=== PATIENT | male | born 1960 | race Hispanic/Latino ===

== ENCOUNTER 2018-01-06 15:05 | Inpatient (IN) | payer OTHER, SELFPAY ==
[2018-01-06 16:22] LABS: #Eosinphils 0.2 thou/uL (0.0-0.7); #Lymphocytes 1.6 thou/uL (1.20-3.40); #Monocytes 0.7 thou/uL (0.11-0.59); #Neutrophils 6.9 thou/uL (1.40-6.50); %Basophils 0.5 % (0.0-1.0); %Eosinophils 2.4 % (0.0-10.0); %Lymphocytes 16.7 % (21.0-51.0); %Monocytes 7.8 % (0.0-10.0); %Neutrophils 72.6 % (42.0-75.0); Hemoglobin 12.3 g/dL (14.0-18.0); Mean Corpuscular HGB CONC 33.6 g/dL (32.0-36.0); Mean Corpuscular Hemoglobin 28.4 pg (27.0-31.0); Mean Corpuscular Volume 84.3 fl (80.0-94.0); Mean Platelet Volume 6.7 fL (7.4-10.4); Platelet Count 268 thou/uL (130-400); RBC Distribution Width 11.8 % (11.5-14.5); Red Blood Cell (RBC) Count 4.34 mill/uL (4.70-6.10); White Blood Cell (WBC) Count 9.5 thou/uL (4.8-10.8)
[2018-01-06 16:42] LABS: ALT (SGPT) 14 U/L (8-55); AST (SGOT) 12 U/L (5-34); Albumin 3.6 g/dL (3.5-5.0); Alkaline Phosphatase 132 U/L (40-150); Anion Gap 13 mmol/L (10-20); BUN (Urea Nitrogen) 17 mg/dL (8.4-25.7); Bilirubin, Total 0.6 mg/dL (0.2-1.2); Calc. Creatinine Clearance 0 mL/min (70-130); Calcium 8.7 mg/dL (7.8-10.44); Carbon Dioxide 21 mmol/L (22-29); Chloride 104 mmol/L (98-107); Estimated GFR-MDRD 77; Globulin 3.4 g/dL (2.4-3.5); Glucose 301 mg/dL (70-105); Potassium 4.7 mmol/L (3.5-5.1); Sodium 133 mmol/L (136-145)
--- NOTE | 2018-01-06 17:36 | RAD ---
RIGHT FOOT THREE VIEWS: 01/06/18 HISTORY: Foot abscess. Pain. FINDINGS: Lisfranc joint alignment is anatomic. Pes planus on the lateral view. Mild osteoarthritic changes thr oughout the foot, most pronounced at the first metatarsophalangeal joint. Soft tissues swelling overl ies the first metatarsophalangeal joint. Subtle cortical irregularity and discontinuity is present at the medial articular surface of the first metatarsal head. Subtle, tiny calcific densities also over lie the plantar surface of the foot at the level of the metatarsal heads in region of soft tissue swe lling. Prominent calcification of the arterial structures. IMPRESSION: Soft tissue swelling about the first metatarsophalangeal joint with subtle ossific erosions and adjac ent calcifications. Aggressive osseous involvement, as with osteomyelitis must be suspected. POS: MICHELLE
[2018-01-06] MEDS ORDERED: Clindamycin/D5W 900 mg/50 ml Premix Bag ONE (18:42)
[2018-01-06] MEDS ORDERED: Acetaminophen 325 MG TAB PO PRN (20:10)
[2018-01-06] MEDS ORDERED: Sodium Chloride 0.9% 1,000 ML IV SCH (20:10)
[2018-01-06 21:52] VITALS: BMI 26.6
[2018-01-06] MEDS ORDERED: Clindamycin/D5W 900 MG in Premix Bag 1 BAG IVPB SCH ×2 (22:00→23:00)
[2018-01-06] MEDS ORDERED: Piperacillin/Tazobactam 4.5 GM in Sodium Chloride 0.9% 100 ML IVPB SCH (23:59)
[2018-01-07] MEDS ORDERED: HumaLOG 300 UNITS/3 ML VIAL SC PRN (08:41)
[2018-01-07] MEDS ORDERED: Mag-Al 1200 mg/1200 mg/30 ML UDCUP PO PRN (08:41)
[2018-01-07] MEDS ORDERED: Guaifenesin DM 100-10/5 ML UDCUP PO PRN (08:41)
[2018-01-07] MEDS ORDERED: HYDROcodone/Acetaminophen 5/325 mg Tablet PO PRN (08:41)
[2018-01-07] MEDS ORDERED: Acetaminophen 325 MG TAB PO PRN (08:41)
[2018-01-07] MEDS ORDERED: Dextrose 5% in Water 1,000 ML IV PRN (08:41)
[2018-01-07] MEDS ORDERED: Dextrose 50% Abboject 50 ML SYRINGE SLOW IVP PRN (08:41)
[2018-01-07] MEDS ORDERED: Sodium Chloride 0.9% 1,000 ML IV SCH (08:45)
[2018-01-07] MEDS: Famotidine 20 MG TAB PO SCH ×2 (09:36→21:09)
[2018-01-07] MEDS: Vancomycin HCl 1 GM in Premix Bag 1 BAG IVPB SCH ×2 (09:36→21:09)
[2018-01-07] MEDS: Piperacillin/Tazobactam 3.375 GM in Sodium Chloride 0.9% 100 ML IVPB SCH ×3 (11:34→23:38)
[2018-01-07 15:19] LABS: Hemoglobin A1c 8.8 % (4.0-6.0)
--- NOTE | 2018-01-07 16:13 | CON ---
DATE OF CONSULTATION: 01/07/2018 CONSULTING PHYSICIAN: Vivi Marr M.D. REASON FOR CONSULTATION: Diabetic foot infection. HISTORY OF PRESENT ILLNESS: The patient is a 57-year-old diabetic male. He receives his me dical care in [place] and receives his diabetic medications there as well. He has lived in [facility] for over 30 years. 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 He t ells me he speaks essentially no [place]. His and son are present at bedside and neither of the m speak any [place] either. Exam is therefore conducted in Faroese. He admits to an ulcer on the plantar aspect of his right foot for the past 5 months. This is underly ing the head of the first metatarsal bone. About 2 months ago, he developed a smaller lesion on the plantar aspect of his left great toe. He presented to the emergency room at this time because the to e had become red and swollen. He denies fever. He denies any pain. He is self-treated these ulcers and has taken no medications in regard to that. PAST MEDICAL HISTORY: Diabetes. PAST SURGICAL HISTORY: Surgical repair of a broken femur about 30 years ago. MEDICATIONS: Glyburide and metformin. He takes 5 mg of glyburide b.i.d. and 850 mg of metformin b.i .d. ALLERGIES: No known drug allergies. PERSONAL AND SOCIAL HISTORY: He is . His is present at bedside. He had 10 children abo ut four of them live in the [facility]. He does not smoke. He drinks alcohol occasionally. 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 REVIEW OF SYSTEMS: Otherwise, unremarkable. FAMILY HISTORY: Noncontributory. PHYSICAL EXAMINATION: VITAL SIGNS: Temperature is 98.1, pulse 71, blood pressure 171/82. GENERAL: He is a well-developed, well-nourished, pleasant male resting in bed in no acute d istress. He is alert and oriented x3. HEAD, EARS, EYES, NOSE AND THROAT: Unremarkable. NECK: Supple without mass or tenderness. LUNGS: Clear to auscultation throughout. CARDIAC: Regular rate and rhythm without murmur. ABDOMEN: Soft, nontender, and nondistended. EXTREMITIES: Attention is focused on his right foot. I am unable to palpate any pulses in his foot; however, Doppler examination reveals both his dorsalis pedis and posterior tibial arteries have good biphasic signals. On the plantar aspect of the foot underlying the first metatarsal head is an ulce r with bulging granulation tissue protruding from this. It measures a little over a centimeter in di ameter. I am able to palpate the underlying bone through this. The great toe has a punched-out ulce r on the lateral aspect. There is devitalized skin surrounding this, it is debrided. I do not think I am able to palpate the bone through this, although the tissue appears to be very unhealthy. ASSESSMENT AND PLAN: The patient with diabetic foot ulcer. He appears to potentially have some oste omyelitis associated with the ulcer involving the first metatarsal head. He has significant infectio n of the great toe, but this appears to predominantly be soft tissue infection. He is receiving IV a ntibiotics right now. I have obtained cultures from both wounds. It may be worthwhile to attempt a course of conservative management of these. It is concerning that there is potentially exposed bone associated with the metatarsal head and this often times leads to an amputation of this bone. This w ould likely require an extended great toe ray amputation for this to heal. We will see what the cult ures show and follow him clinically with dressing changes for a day or two before deciding what to do with the foot.
[2018-01-07] MEDS ORDERED: Lisinopril 10 MG TAB PO SCH (16:45)
[2018-01-07] MEDS: HumaLOG 300 UNITS/3 ML VIAL SC PRN (17:07)
--- NOTE | 2018-01-07 20:38 | HP ---
REASON FOR ADMISSION: Right foot diabetic ulcer with likely osteomyelitis. HISTORY OF PRESENTING ILLNESS: The patient gives history of having ulcer over the right metatarsal head of first toe 5 months back. This started out as a callus and when he pulled the skin out, it started slowly getting infected. He tried putting a steroid cream with gentamicin on it. This has been progressively getting worse. Two months back, he also developed another blister over the same toe at the tip that is right first toe and the blister popped up and has ever since been slowly becoming bigger. As the swelling and the discharge was becoming more purulent and it started to hurt to ambulate, the patient came to the emergency room. 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 No complaints of chest pain, palpitation, PND or orthopnea. No complaints of fever. PAST MEDICAL AND SURGICAL HISTORY: Diabetes mellitus for last 16 years or so. No other surgeries. CURRENT MEDICATIONS: He takes metformin 850 mg p.o. twice daily and glibenclamide 5 mg p.o. twice daily. ALLERGIES: No known drug allergies. PERSONAL HISTORY: Does not abuse alcohol or drugs. No history of smoking. 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 FAMILY HISTORY: Mother is living and has diabetes. Father at the age of 77 years, he was alcoholic and from complications from the same. REVIEW OF SYSTEMS: The following complete review of systems was negative, unless otherwise mentioned in the HPI or below: Constitutional: Weight loss or gain, ability to conduct usual activities. Skin: Rash, itching. Eyes: Double vision, pain. ENT/Mouth: Nose bleeding, neck stiffness, pain, tenderness. Cardiovascular: Palpitations, dyspnea on exertion, orthopnea. Respiratory: Shortness of breath, wheezing, cough, hemoptysis, fever or night sweats. Gastrointestinal: Poor appetite, abdominal pain, heartburn, nausea, vomiting, constipation, or diarrhea. Genitourinary: Urgency, frequency, dysuria, nocturia. Musculoskeletal: Pain, swelling. Neurologic/Psychiatric: Anxiety, depression. Allergy/Immunologic: Skin rash, bleeding tendency. PHYSICAL EXAMINATION: GENERAL: The patient is a 57-year-old male, who is currently not in any acute distress. VITAL SIGNS: Blood pressure 146/74, pulse 70 per minute, respiratory rate 16 per minute, temperature 98.2 degrees Fahrenheit, saturating 100% on room air. NECK: Supple, no elevated JVD. HEENT: Eyes: Extraocular muscles intact. Pupils reacting to light. Oral cavity: Mucous membranes are moist. No exudates or congestion. CARDIOVASCULAR: S1, S2 heard. Regular rhythm. RESPIRATORY: Air entry 2+ bilateral. No rales or rhonchi. ABDOMEN: Soft, bowel sounds heard. No tenderness, rigidity or guarding. EXTREMITIES: The patient has 2 ulcers, one on the ball of the right metatarsal head, the ulcer is 2 x 1 cm with surrounding yellowish purulent material, the circumference is around 4 x 4 cm. He also has another ulcer over the posterolateral aspect of the big toe on the right foot. The ulcer itself is around 3 x 2 cm with purulent all over the distal tip extending to the proximal phalanx. No calf tenderness or other ischemic ulcerations. CENTRAL NERVOUS SYSTEM: No gross focal deficits seen. The patient is alert, awake, oriented x3. PSYCHIATRIC: The patient's mood is euthymic. No hallucinations or delusions. LABORATORY AND X-RAY FINDINGS: Right foot x-ray done 3-view shows soft tissue swelling around the first metatarsophalangeal joint with subtle ossific erosions and adjacent calcifications, aggressive osseous involvement as with osteomyelitis must be suspected. Sodium 133, BUN 17, creatinine 1.0, glucose 301, hemoglobin A1c 8.8. Liver enzymes within normal limits. CRP is 7.42. Albumin is 3.6. White count of 9, hemoglobin and hematocrit 12 and 36, platelet count 268 with 72% neutrophils, MCV is 84. CLINICAL IMPRESSION AND PLAN: The patient will be admitted to medical floor for right foot diabetic ulcer over the first toe and metatarsal head with likely osteomyelitis. We will place him on Zosyn and vancomycin. Cultures have been obtained from the foot. I have consulted Dr. Suresh for General Surgery. He will be on normal saline at 60 mL per hour. We will keep him n.p.o. for possible debridement/amputation per General Surgery advice. He will be on Pepcid 20 mg twice daily. We will add metformin in the morning once his debridement is done. We will continue to closely monitor him on medical floor. MTDD
[2018-01-07] MEDS: Metoprolol Tartrate 25 MG TAB PO SCH (21:09)
[2018-01-08 05:25] LABS: #Eosinphils 0.2 thou/uL (0.0-0.7); #Lymphocytes 1.7 thou/uL (1.20-3.40); #Monocytes 0.7 thou/uL (0.11-0.59); #Neutrophils 4.4 thou/uL (1.40-6.50); %Basophils 0.5 % (0.0-1.0); %Eosinophils 3.2 % (0.0-10.0); %Lymphocytes 24.3 % (21.0-51.0); %Monocytes 9.4 % (0.0-10.0); %Neutrophils 62.6 % (42.0-75.0); Hemoglobin 11.8 g/dL (14.0-18.0); Mean Corpuscular HGB CONC 34.4 g/dL (32.0-36.0); Mean Corpuscular Hemoglobin 28.6 pg (27.0-31.0); Mean Platelet Volume 6.6 fL (7.4-10.4); Platelet Count 262 thou/uL (130-400); RBC Distribution Width 11.6 % (11.5-14.5); Red Blood Cell (RBC) Count 4.11 mill/uL (4.70-6.10); White Blood Cell (WBC) Count 7.1 thou/uL (4.8-10.8)
[2018-01-08 06:01] LABS: Anion Gap 10 mmol/L (10-20); BUN (Urea Nitrogen) 12 mg/dL (8.4-25.7); Calc. Creatinine Clearance 101 mL/min (70-130); Calcium 8.6 mg/dL (7.8-10.44); Carbon Dioxide 26 mmol/L (22-29); Chloride 106 mmol/L (98-107); Estimated GFR-MDRD 90; Glucose 171 mg/dL (70-105); Potassium 4.5 mmol/L (3.5-5.1); Sodium 137 mmol/L (136-145)
[2018-01-08] MEDS: Piperacillin/Tazobactam 3.375 GM in Sodium Chloride 0.9% 100 ML IVPB SCH ×3 (06:16→18:06)
[2018-01-08] MEDS: Famotidine 20 MG TAB PO SCH ×2 (08:35→20:06)
[2018-01-08] MEDS: Vancomycin HCl 1 GM in Premix Bag 1 BAG IVPB SCH ×2 (08:35→20:05)
[2018-01-08] MEDS: Lisinopril 10 MG TAB PO SCH (08:35)
[2018-01-08] MEDS: Metoprolol Tartrate 25 MG TAB PO SCH ×2 (08:35→20:06)
[2018-01-08] MEDS: Enoxaparin Sodium 40 MG/0.4 ML SYRINGE SC SCH (08:35)
--- NOTE | 2018-01-08 11:54 | PRG ---
DATE OF SERVICE: 01/08/2018 SUBJECTIVE: This is hospital day #3 for Mr. Pedro. He had 2 ulcers on the plantar aspect of his right foot, one overlying the first MTP head and the other associated with the great toe. I debrided that superficially yesterday and requested Wound Care consult. I saw the patient with Wound Care to day. The patient has no complaints. OBJECTIVE: VITAL SIGNS: He is afebrile, pulse is 77, blood pressure 151/74. Examination is limited today to hi s right foot. The ulcer at the first MTP joint was debrided, removing some scar tissue and hyper-gra nulation tissue that would allow us to pack the wound on the plantar aspect. There was minimal bleed ing from this as most of this tissue was avascular fibrotic tissue. I then turned my attention to th e toe. There was black skin on the distal plantar aspect. This was debrided. There is a foul smell from this area. After the skin was debrided, there was what appeared to be normal pulpy material un derneath. Today, I am unable to discern that either wound communicates with underlying bone and I am hopeful that with wound care that these have a chance of healing without amputation. LABORATORY STUDIES: CBC is normal with hemoglobin of 11.8. Basic metabolic panel is also normal exc ept for elevated sugar. Microbiology reveals beta hemolytic streptococcus from both wound sites. He continues to receive van comycin and Zosyn in treatment of this. If the final cultures just reveal Streptococcus, then he cou ld be changed to an oral antibiotic with continued outpatient wound care. At this time, I would hold off on amputation of anything, but he certainly may require this somewhere down the road. I will gi ve orders for strict nonweightbearing on the right foot and ask physical therapy to train him using c rutches to keep the weight off his foot.
[2018-01-08] MEDS: HumaLOG 300 UNITS/3 ML VIAL SC PRN ×2 (12:19→18:07)
--- NOTE | 2018-01-08 15:32 | PDOC.PN ---
- Subjective Encounter Start Date: 01/08/18 Encounter Start Time: 12:00 Subjective: no pain, feels better - Objective Resuscitation Status: Resuscitation Status FULL:Full Resuscitation MAR Reviewed: Yes Vital Signs & Weight: Vital Signs (12 hours) Temp Pulse Resp BP BP Pulse Ox 01/08/18 08:35 151/74 H 01/08/18 08:00 98.9 F 77 18 160/89 H 100 Weight Weight 169 lb 12.095 oz I&O: 01/07/18 01/08/18 01/09/18 06:59 06:59 06:59 Intake Total 950 907 960 Balance 950 907 960 Result Diagrams: 01/08/18 04:48 01/08/18 04:48 Additional Labs: Accuchecks 01/08/18 01/08/18 01/07/18 11:34 06:12 15:58 POC Glucose 290 H 186 H 163 H Phys Exam - Physical Examination HEENT: PERRLA, moist MMs Neck: no JVD, supple Respiratory: no wheezing, no rales Cardiovascular: RRR, no significant murmur Gastrointestinal: soft, non-tender, positive bowel sounds Musculoskeletal: pulses present right foot ulcers x2 in dressing Neurological: non-focal, moves all 4 limbs Psychiatric: normal affect, A&O x 3 Dx/Plan (1) Diabetic foot ulcer Code(s): E11.621 - TYPE 2 DIABETES MELLITUS WITH FOOT ULCER; L97.509 - NON- PRESSURE CHRONIC ULCER OTH PRT UNSP FOOT W UNSP SEVERITY Status: Acute Qualifiers: Diabetic foot ulcer location: toe Diabetes mellitus type: type 2 Laterality: right Comment: x2 one over metatarsal head on right, distal phalanx area of gr toe, ? osteomyelitis (2) DM type 2 (diabetes mellitus, type 2) Status: Chronic Qualifiers: Diabetes mellitus senior care insulin use: without senior care use Diabetes mellitus complication status: with hyperglycemia Qualified Code(s): E11.65 - Type 2 diabetes mellitus with hyperglycemia (3) HTN (hypertension) Code(s): I10 - ESSENTIAL (PRIMARY) HYPERTENSION Status: Chronic Qualifiers: Hypertension type: essential hypertension Qualified Code(s): I10 - Essential (primary) hypertension (4) Dyslipidemia Code(s): E78.5 - HYPERLIPIDEMIA, UNSPECIFIED Status: Chronic - Plan is on vanc and zosyn -: await full cultures from wound -: dc plan on augmentin, wound care teaching in 1-2 days -: HbA1C is 8.8, home dose metformin, add glipizide 5mg bid -: on lopressor and lisinopril. Non wtg bearing on right foot and to use crutc * . Review of Systems - Medications/Allergies Allergies/Adverse Reactions: Allergies Allergy/AdvReac Type Severity Reaction Status Date / Time No Known Allergies Allergy Unverified 01/06/18 20:09 Medications: Current Medications Acetaminophen (Tylenol) 650 mg PO Q4H PRN PRN Reason: Headache/Fever or Pain Hydrocodone Bitart/Acetaminophen ([place] 5/325) 1 tab PO Q4H PRN PRN Reason: Moderate Pain (4-6) Al Hydroxide/Mg Hydroxide (Maalox) 30 ml PO Q6H PRN PRN Reason: Heartburn or Indigestion Dextrose/Water (Dextrose 50%) 25 gm SLOW IVP PRN PRN PRN Reason: Hypoglycemia Enoxaparin Sodium (Lovenox) 40 mg SC 0900 [facility] Last Admin: 01/08/18 08:35 Dose: 40 mg Famotidine (Pepcid) 20 mg PO BID [facility] Last Admin: 01/08/18 08:35 Dose: 20 mg Glucagon (Glucagon) 1 mg IM PRN PRN PRN Reason: Hypoglycemia Guaifenesin/Dextromethorphan (Robitussin Dm) 15 ml PO Q4H PRN PRN Reason: Cough Dextrose/Water (D5w) 1,000 mls @ 0 mls/hr IV .Q0M PRN; As Directed PRN Reason: Hypoglycemia Piperacillin Sod/Tazobactam (Sod 3.375 gm/ Sodium Chloride) 100 mls @ 200 mls/ hr IVPB Q6HR [facility] Last Admin: 01/08/18 12:19 Dose: 100 mls Vancomycin HCl 1 gm/ Device 200 mls @ 200 mls/hr IVPB Q12HR [facility] Last Admin: 01/08/18 08:35 Dose: 200 mls Insulin Human Lispro (Humalog) 0 units SC .MODERATE SLIDING SC PRN PRN Reason: Moderate Correctional Scale Last Admin: 01/08/18 12:19 Dose: 6 unit Insulin Human Lispro (Humalog) 0 units SC .BEDTIME SLIDING SC PRN PRN Reason: Bedtime Correctional Scale Lisinopril (Zestril) 10 mg PO DAILY [facility] Last Admin: 01/08/18 08:35 Dose: 10 mg Metoprolol Tartrate (Lopressor) 25 mg PO BID [facility] Last Admin: 01/08/18 08:35 Dose: 25 mg
[2018-01-08] MEDS: metFORMIN 500 MG TAB PO SCH (18:06)
[2018-01-08] MEDS: glipiZIDE 5 MG TAB PO SCH (18:06)
[2018-01-08 20:23] LABS: Vancomycin, Trough 10.7 ug/mL
[2018-01-09] MEDS: Piperacillin/Tazobactam 3.375 GM in Sodium Chloride 0.9% 100 ML IVPB SCH ×4 (00:20→17:39)
[2018-01-09] MEDS: Vancomycin HCl 1 GM in Premix Bag 1 BAG IVPB SCH ×2 (04:13→13:21)
[2018-01-09] MEDS: HumaLOG 300 UNITS/3 ML VIAL SC PRN ×3 (05:43→17:40)
[2018-01-09] MEDS: Metoprolol Tartrate 25 MG TAB PO SCH ×2 (09:44→21:17)
[2018-01-09] MEDS: Lisinopril 10 MG TAB PO SCH (09:44)
[2018-01-09] MEDS: Enoxaparin Sodium 40 MG/0.4 ML SYRINGE SC SCH (09:44)
[2018-01-09] MEDS: metFORMIN 500 MG TAB PO SCH ×3 (09:44→17:39)
[2018-01-09] MEDS: Famotidine 20 MG TAB PO SCH ×2 (09:45→21:17)
[2018-01-09] MEDS: glipiZIDE 5 MG TAB PO SCH ×2 (09:45→17:39)
--- NOTE | 2018-01-09 16:46 | PDOC.PN ---
- Subjective Encounter Start Date: 01/09/18 Encounter Start Time: 12:00 Subjective: no pain, feels better - Objective Resuscitation Status: Resuscitation Status FULL:Full Resuscitation MAR Reviewed: Yes Vital Signs & Weight: Vital Signs (12 hours) Temp Pulse Resp BP BP Pulse Ox 01/09/18 09:44 163/83 H 01/09/18 08:00 98.7 F 72 18 99 01/09/18 07:41 98.7 F 72 18 163/83 H 99 Weight Admit Weight 169 lb 12.095 oz Weight 169 lb 12.095 oz I&O: 01/08/18 01/09/18 01/10/18 06:59 06:59 06:59 Intake Total 907 1440 480 Balance 907 1440 480 Result Diagrams: 01/08/18 04:48 01/08/18 04:48 Additional Labs: Accuchecks 01/09/18 01/09/18 01/09/18 11:38 05:44 00:16 POC Glucose 231 H 246 H 186 H 01/08/18 01/08/18 20:11 16:29 POC Glucose 300 H 166 H Phys Exam - Physical Examination HEENT: PERRLA, moist MMs Neck: no JVD, supple Respiratory: no wheezing, no rales Cardiovascular: RRR, no significant murmur Gastrointestinal: soft, non-tender, positive bowel sounds Musculoskeletal: no edema, pulses present right first toe ulcer, head of MT head ulcer in dressing Neurological: non-focal, moves all 4 limbs Psychiatric: normal affect, A&O x 3 Dx/Plan (1) Diabetic foot ulcer Code(s): E11.621 - TYPE 2 DIABETES MELLITUS WITH FOOT ULCER; L97.509 - NON- PRESSURE CHRONIC ULCER OTH PRT UNSP FOOT W UNSP SEVERITY Status: Acute Qualifiers: Diabetic foot ulcer location: toe Diabetes mellitus type: type 2 Laterality: right Comment: x2 one over metatarsal head on right, distal phalanx area of gr toe, ? osteomyelitis (2) DM type 2 (diabetes mellitus, type 2) Status: Chronic Qualifiers: Diabetes mellitus longterm insulin use: without middle or intermediate school principal use Diabetes mellitus complication status: with hyperglycemia Qualified Code(s): E11.65 - Type 2 diabetes mellitus with hyperglycemia (3) HTN (hypertension) Code(s): I10 - ESSENTIAL (PRIMARY) HYPERTENSION Status: Chronic Qualifiers: Hypertension type: essential hypertension Qualified Code(s): I10 - Essential (primary) hypertension (4) Dyslipidemia Code(s): E78.5 - HYPERLIPIDEMIA, UNSPECIFIED Status: Chronic - Plan increase metformin to 1000mg bid along with glipizide 5mg bid -: is on vanc and zosyn -: may switch to augmentin for dc planning -: await surgical clearance for dc -: is non weight bearing on right foot/walk with crutches-CM for help withsame * . Review of Systems - Medications/Allergies Allergies/Adverse Reactions: Allergies Allergy/AdvReac Type Severity Reaction Status Date / Time No Known Allergies Allergy Unverified 01/06/18 20:09 Medications: Current Medications Acetaminophen (Tylenol) 650 mg PO Q4H PRN PRN Reason: Headache/Fever or Pain Last Admin: 01/08/18 20:09 Dose: 650 mg Hydrocodone Bitart/Acetaminophen ([place] 5/325) 1 tab PO Q4H PRN PRN Reason: Moderate Pain (4-6) Al Hydroxide/Mg Hydroxide (Maalox) 30 ml PO Q6H PRN PRN Reason: Heartburn or Indigestion Dextrose/Water (Dextrose 50%) 25 gm SLOW IVP PRN PRN PRN Reason: Hypoglycemia Enoxaparin Sodium (Lovenox) 40 mg SC 0900 [facility] Last Admin: 01/09/18 09:44 Dose: 40 mg Famotidine (Pepcid) 20 mg PO BID [facility] Last Admin: 01/09/18 09:45 Dose: 20 mg Glipizide (Glucotrol) 5 mg PO BID-[facility] Last Admin: 01/09/18 09:45 Dose: 5 mg Glucagon (Glucagon) 1 mg IM PRN PRN PRN Reason: Hypoglycemia Guaifenesin/Dextromethorphan (Robitussin Dm) 15 ml PO Q4H PRN PRN Reason: Cough Dextrose/Water (D5w) 1,000 mls @ 0 mls/hr IV .Q0M PRN; As Directed PRN Reason: Hypoglycemia Piperacillin Sod/Tazobactam (Sod 3.375 gm/ Sodium Chloride) 100 mls @ 200 mls/ hr IVPB Q6HR [facility] Last Admin: 01/09/18 11:55 Dose: 100 mls Vancomycin HCl 1 gm/ Device 200 mls @ 200 mls/hr IVPB 0400,1200,2000 [facility] Last Admin: 01/09/18 13:21 Dose: 200 mls Insulin Human Lispro (Humalog) 0 units SC .MODERATE SLIDING SC PRN PRN Reason: Moderate Correctional Scale Last Admin: 01/09/18 13:21 Dose: 4 unit Insulin Human Lispro (Humalog) 0 units SC .BEDTIME SLIDING SC PRN PRN Reason: Bedtime Correctional Scale Last Admin: 01/08/18 20:13 Dose: 3 unit Lisinopril (Zestril) 10 mg PO DAILY [facility] Last Admin: 01/09/18 09:44 Dose: 10 mg Metformin HCl (Glucophage) 1,000 mg PO BID-[facility] Last Admin: 01/09/18 09:44 Dose: 1,000 mg Metoprolol Tartrate (Lopressor) 25 mg PO BID [facility] Last Admin: 01/09/18 09:44 Dose: 25 mg
--- NOTE | 2018-01-09 19:01 | PRG ---
DATE OF SERVICE: 01/09/2018 Mr. Hakan Muller is hospital day #4 in regard to his right foot ulcers and infection. I debrided this with a wound care team yesterday. A dressing change was placed by Wound care team today. He co ntinues to receive IV antibiotics with vancomycin and Zosyn. Cultures still only revealed Streptococ cus agalactiae. This is widely susceptible to everything. We had to be able to change his antibioti cs today to discontinue the Zosyn and continue the vancomycin. I would anticipate he should be stabl e for discharge home on Augmentin when he is ready. I will see his wound with wound care team tomorr ow and if everything works appropriate, then I plan on discharge him to home on a prolonged course of Augmentin to follow up with myself in the office.
[2018-01-09 19:25] LABS: Vancomycin, Trough 25.3 ug/mL
[2018-01-10] MEDS ORDERED: Vancomycin HCl 750 MG in Sodium Chloride 0.9% 250 ML 250 ML IVPB SCH (04:00)
[2018-01-10] MEDS: glipiZIDE 5 MG TAB PO SCH ×2 (07:51→17:43)
[2018-01-10] MEDS: Lisinopril 10 MG TAB PO SCH (07:51)
[2018-01-10] MEDS: Metoprolol Tartrate 25 MG TAB PO SCH ×2 (07:51→23:18)
[2018-01-10] MEDS: metFORMIN 500 MG TAB PO SCH ×2 (07:51→17:43)
[2018-01-10] MEDS: Famotidine 20 MG TAB PO SCH ×2 (07:51→23:17)
[2018-01-10] MEDS: Enoxaparin Sodium 40 MG/0.4 ML SYRINGE SC SCH (07:51)
[2018-01-10] MEDS ORDERED: PROPOFOL 200 MG/20 ML VIAL ONE (14:05)
[2018-01-10] MEDS ORDERED: Lidocaine 1% PF 5 ML VIAL ONE (14:05)
[2018-01-10] MEDS ORDERED: Bupivacaine/Epinephrine 0.25% 30 ML VIAL ONE (21:07)
[2018-01-10] MEDS ORDERED: Fentanyl 100 MCG/2 ML VIAL ONE (21:11)
[2018-01-10] MEDS ORDERED: Promethazine HCl 25 MG/ML VIAL IM PRN (22:36)
[2018-01-10] MEDS ORDERED: Promethazine HCl 25 MG/ML VIAL SLOW IVP PRN (22:36)
[2018-01-10] MEDS ORDERED: Ondansetron HCl/PF 4 MG/2 ML Vial IVP PRN (22:36)
[2018-01-10] MEDS ORDERED: Ketorolac Tromethamine 30 MG/ML VIAL IVP PRN (22:36)
[2018-01-10] MEDS: Amoxicillin/Potassium Clav 875 MG TAB PO SCH (23:18)
[2018-01-11 04:31] LABS: Vancomycin, Trough 7.8 ug/mL
[2018-01-11] MEDS: metFORMIN 500 MG TAB PO SCH ×2 (08:53→17:27)
[2018-01-11] MEDS: Famotidine 20 MG TAB PO SCH ×2 (08:53→21:11)
[2018-01-11] MEDS: glipiZIDE 5 MG TAB PO SCH ×2 (08:54→17:26)
[2018-01-11] MEDS: Lisinopril 10 MG TAB PO SCH (08:54)
[2018-01-11] MEDS: Amoxicillin/Potassium Clav 875 MG TAB PO SCH ×2 (08:54→21:11)
[2018-01-11] MEDS: Enoxaparin Sodium 40 MG/0.4 ML SYRINGE SC SCH (08:56)
[2018-01-11] MEDS: Metoprolol Tartrate 25 MG TAB PO SCH ×2 (08:59→21:10)
--- NOTE | 2018-01-11 09:13 | PDOC.PN ---
- Subjective Encounter Start Date: 01/10/18 Encounter Start Time: 11:00 Patient is seen today, Waiitng on Surgery to Review his Wound and recommedations. plan to dischagre him today. - Objective Resuscitation Status: Resuscitation Status FULL:Full Resuscitation MAR Reviewed: Yes Vital Signs & Weight: Vital Signs (12 hours) Temp Pulse Resp BP BP Pulse Ox 01/11/18 08:54 147/73 H 01/11/18 07:45 98.2 F 74 16 136/69 98 01/11/18 04:00 98.2 F 70 16 137/76 96 01/11/18 03:00 70 18 146/75 H 95 01/11/18 02:00 73 18 126/75 96 01/11/18 01:30 68 20 154/73 H 97 01/11/18 01:00 98.4 F 74 18 146/76 H 96 01/11/18 00:30 98.7 F 76 18 171/74 H 97 01/11/18 00:00 98.3 F 82 20 178/86 H 97 01/10/18 23:30 98.0 F 87 18 182/88 H 97 01/10/18 23:00 98.0 F 87 18 97 01/10/18 22:50 98.0 F 87 18 181/88 H 97 Weight Admit Weight 169 lb 12.095 oz Weight 169 lb 12.095 oz I&O: 01/10/18 01/11/18 01/12/18 06:59 06:59 06:59 Intake Total 1120 240 Balance 1120 240 Result Diagrams: 01/08/18 04:48 01/08/18 04:48 Additional Labs: Accuchecks 01/11/18 01/10/18 01/10/18 04:46 23:06 17:32 POC Glucose 149 H 115 H 93 01/10/18 01/10/18 16:36 11:15 POC Glucose 80 144 H Radiology Reviewed by me: Yes EKG Reviewed by me: Yes Phys Exam - Physical Examination HEENT: PERRLA, moist MMs Neck: no nodes, no JVD Respiratory: no wheezing Cardiovascular: RRR, no significant murmur Gastrointestinal: soft, non-tender Musculoskeletal: no edema, pulses present Dx/Plan (1) Diabetic foot ulcer Code(s): E11.621 - TYPE 2 DIABETES MELLITUS WITH FOOT ULCER; L97.509 - NON- PRESSURE CHRONIC ULCER OTH PRT UNSP FOOT W UNSP SEVERITY Status: Acute Qualifiers: Diabetic foot ulcer location: toe Diabetes mellitus type: type 2 Laterality: right Comment: x2 one over metatarsal head on right, distal phalanx area of gr toe, ? osteomyelitis (2) DM type 2 (diabetes mellitus, type 2) Status: Chronic Qualifiers: Diabetes mellitus outsole scheduler insulin use: without outsole scheduler use Diabetes mellitus complication status: with hyperglycemia Qualified Code(s): E11.65 - Type 2 diabetes mellitus with hyperglycemia Comment: well controlled, Continue to Monitor, Mild Elevation in BG will change to moderate sliding scale. (3) Dyslipidemia Code(s): E78.5 - HYPERLIPIDEMIA, UNSPECIFIED Status: Chronic Comment: contoinue Statin, (4) HTN (hypertension) Code(s): I10 - ESSENTIAL (PRIMARY) HYPERTENSION Status: Chronic Qualifiers: Hypertension type: essential hypertension Qualified Code(s): I10 - Essential (primary) hypertension Comment: Stbale, Well controlled, Continue Home MEds/. - Plan cont current plan of care, continue antibiotics, PT/OT, clinical social work aide, incentive spirometry, out of bed/ambulate, DVT proph w/lovenox Plan to Dischagre patient if surgeon reviews the Wound and Ok with plan for Po Antibiotics. Non Weight Bearing on Right Foot, needing Crutches. CM working on it. - Discharge Day Encounter end time: 11:35 Review of Systems - Review of Systems Eyes: negative: Pain, Vision Change, Conjunctivae Inflammation, Eyelid Inflammation, Redness, Other ENT: negative: Ear Pain, Ear Discharge, Nose Pain, Nose Discharge, Nose Congestion, Mouth Pain, Mouth Swelling, Throat Pain, Throat Swelling, Other Respiratory: negative: Cough, Dry, Shortness of Breath, Hemoptysis, SOB with Excertion, Pleuritic Pain, Sputum, Wheezing Cardiovascular: negative: chest pain, palpitations, orthopnea, paroxysmal nocturnal dyspnea, edema, light headedness, other Musculoskeletal: Foot Pain Skin: negative: Rash, Lesions, Michael, Bruising, Other - Medications/Allergies Allergies/Adverse Reactions: Allergies Allergy/AdvReac Type Severity Reaction Status Date / Time No Known Allergies Allergy Unverified 01/06/18 20:09 Medications: Current Medications Acetaminophen (Tylenol) 650 mg PO Q4H PRN PRN Reason: Headache/Fever or Pain Last Admin: 01/08/18 20:09 Dose: 650 mg Hydrocodone Bitart/Acetaminophen ([place] 5/325) 1 tab PO Q4H PRN PRN Reason: Moderate Pain (4-6) Al Hydroxide/Mg Hydroxide (Maalox) 30 ml PO Q6H PRN PRN Reason: Heartburn or Indigestion Amoxicillin/Clavulanate Potassium (Augmentin) 875 mg PO Q12HR COUNTS INCLUDE 234 BEDS AT THE [facility] Last Admin: 01/11/18 08:54 Dose: 875 mg Dextrose/Water (Dextrose 50%) 25 gm SLOW IVP PRN PRN PRN Reason: Hypoglycemia Enoxaparin Sodium (Lovenox) 40 mg SC 0900 COUNTS INCLUDE 234 BEDS AT THE [facility] Last Admin: 01/11/18 08:56 Dose: 40 mg Famotidine (Pepcid) 20 mg PO BID COUNTS INCLUDE 234 BEDS AT THE [facility] Last Admin: 01/11/18 08:53 Dose: 20 mg Glipizide (Glucotrol) 5 mg PO BID-[facility] Last Admin: 01/11/18 08:54 Dose: 5 mg Glucagon (Glucagon) 1 mg IM PRN PRN PRN Reason: Hypoglycemia Guaifenesin/Dextromethorphan (Robitussin Dm) 15 ml PO Q4H PRN PRN Reason: Cough Dextrose/Water (D5w) 1,000 mls @ 0 mls/hr IV .Q0M PRN; As Directed PRN Reason: Hypoglycemia Insulin Human Lispro (Humalog) 0 units SC .MODERATE SLIDING SC PRN PRN Reason: Moderate Correctional Scale Last Admin: 01/09/18 17:40 Dose: 4 unit Insulin Human Lispro (Humalog) 0 units SC .BEDTIME SLIDING SC PRN PRN Reason: Bedtime Correctional Scale Last Admin: 01/08/18 20:13 Dose: 3 unit Lisinopril (Zestril) 10 mg PO DAILY COUNTS INCLUDE 234 BEDS AT THE [facility] Last Admin: 01/11/18 08:54 Dose: 10 mg Metformin [facility] ([facility]) [facility] Last Admin: 01/11/18 08:53 Dose: 1,000 mg Metoprolol Tartrate (Lopressor) 25 mg PO BID COUNTS INCLUDE 234 BEDS AT THE [facility] Last Admin: 01/11/18 08:59 Dose: 25 mg
[2018-01-11] MEDS: HumaLOG 300 UNITS/3 ML VIAL SC PRN (13:00)
--- NOTE | 2018-01-11 20:55 | PRG ---
DATE OF SERVICE: 01/11/2018 SUBJECTIVE: Mr. Hakan Muller is postoperative day #1 from a right great toe ray amputation. His wound was left open to heal in by secondary intention secondary to infection. He has no complaints. A wound VAC was placed by Wound care team today and is intact currently. PHYSICAL EXAMINATION: VITAL SIGNS: He is afebrile, pulse 71, blood pressure 176/77. EXTREMITIES: Examination is limited to his right foot which has an appropriate dressing in place. LABORATORY DATA: There are no new laboratory studies obtained today. His sugars generally pretty we ll controlled. ASSESSMENT AND PLAN: Patient is doing well following amputation of his infected right great toe. He may continue on IV antibiotics for now. I will inspect his wound with the wound care team on Tuesday when the dressing is changed. If it appears to be making satisfactory progress at that time then I would plan on discharging him with a course of oral antibiotics and continued wound care.
[2018-01-12] MEDS: Enoxaparin Sodium 40 MG/0.4 ML SYRINGE SC SCH (08:24)
[2018-01-12] MEDS: metFORMIN 500 MG TAB PO SCH ×2 (08:24→17:53)
[2018-01-12] MEDS: Amoxicillin/Potassium Clav 875 MG TAB PO SCH ×2 (08:24→21:10)
[2018-01-12] MEDS: Lisinopril 10 MG TAB PO SCH (08:25)
[2018-01-12] MEDS: Famotidine 20 MG TAB PO SCH ×2 (08:25→21:10)
[2018-01-12] MEDS: Metoprolol Tartrate 25 MG TAB PO SCH ×2 (08:25→21:10)
[2018-01-12] MEDS: glipiZIDE 5 MG TAB PO SCH ×2 (08:25→17:53)
--- NOTE | 2018-01-12 15:17 | PDOC.PN ---
- Subjective Encounter Start Date: 01/11/18 Encounter Start Time: 13:00 PAtient is seen today, Post op day 1, has osme pain from post suregry. Alert and ortiented. - Objective Resuscitation Status: Resuscitation Status FULL:Full Resuscitation MAR Reviewed: Yes Vital Signs & Weight: Vital Signs (12 hours) Temp Pulse Resp BP BP Pulse Ox 01/12/18 08:25 148/72 H 01/12/18 08:00 98.2 F 69 22 H 01/12/18 07:40 98.2 F 69 22 H 133/71 98 Weight Admit Weight 169 lb 12.095 oz Weight 169 lb 12.095 oz I&O: 01/11/18 01/12/18 01/13/18 06:59 06:59 06:59 Intake Total 240 1200 Output Total 500 Balance 240 700 Result Diagrams: 01/08/18 04:48 01/08/18 04:48 Additional Labs: Accuchecks 01/12/18 01/12/18 01/11/18 11:41 05:09 20:28 POC Glucose 130 H 140 H 178 H 01/11/18 16:58 POC Glucose 90 Radiology Reviewed by me: Yes Phys Exam - Physical Examination HEENT: PERRLA, moist MMs Neck: no nodes, no JVD Respiratory: no wheezing, no rales Cardiovascular: RRR, no significant murmur Gastrointestinal: soft, non-tender Musculoskeletal: no edema, pulses present Neurological: non-focal, normal sensation Psychiatric: normal affect, A&O x 3 Dx/Plan (1) Diabetic foot ulcer Code(s): E11.621 - TYPE 2 DIABETES MELLITUS WITH FOOT ULCER; L97.509 - NON- PRESSURE CHRONIC ULCER OTH PRT UNSP FOOT W UNSP SEVERITY Status: Acute Qualifiers: Diabetic foot ulcer location: toe Diabetes mellitus type: type 2 Laterality: right Comment: s/p Amputation of the great toe, POD 1, stbale on Wound vac now. (2) DM type 2 (diabetes mellitus, type 2) Status: Chronic Qualifiers: Diabetes mellitus manager intermediate insulin use: without mcfp use Diabetes mellitus complication status: with hyperglycemia Qualified Code(s): E11.65 - Type 2 diabetes mellitus with hyperglycemia Comment: well controlled, Continue to Monitor, Mild Elevation in BG will change to moderate sliding scale. (3) Dyslipidemia Code(s): E78.5 - HYPERLIPIDEMIA, UNSPECIFIED Status: Chronic Comment: contoinue Statin, (4) HTN (hypertension) Code(s): I10 - ESSENTIAL (PRIMARY) HYPERTENSION Status: Chronic Qualifiers: Hypertension type: essential hypertension Qualified Code(s): I10 - Essential (primary) hypertension Comment: Stbale, Well controlled, Continue Home MEds/. - Plan cont current plan of care, continue antibiotics, PT/OT, respiratory therapy, incentive spirometry, DVT proph w/SCDs * . - Discharge Day Encounter end time: 13:00 Review of Systems - Review of Systems Eyes: negative: Pain, Vision Change, Conjunctivae Inflammation, Eyelid Inflammation, Redness, Other ENT: negative: Ear Pain, Ear Discharge, Nose Pain, Nose Discharge, Nose Congestion, Mouth Pain, Mouth Swelling, Throat Pain, Throat Swelling, Other Respiratory: negative: Cough, Dry, Shortness of Breath, Hemoptysis, SOB with Excertion, Pleuritic Pain, Sputum, Wheezing Cardiovascular: negative: chest pain, palpitations, orthopnea, paroxysmal nocturnal dyspnea, edema, light headedness, other Gastrointestinal: negative: Nausea, Vomiting, Abdominal Pain, Diarrhea, Constipation, Melena, Hematochezia, Other Musculoskeletal: Leg Pain. negative: Neck Pain, Shoulder Pain, Arm Pain, Back Pain, Hand Pain, Foot Pain, Other - Medications/Allergies Allergies/Adverse Reactions: Allergies Allergy/AdvReac Type Severity Reaction Status Date / Time No Known Allergies Allergy Unverified 01/06/18 20:09 Medications: Current Medications Acetaminophen (Tylenol) 650 mg PO Q4H PRN PRN Reason: Headache/Fever or Pain Last Admin: 01/08/18 20:09 Dose: 650 mg Hydrocodone Bitart/Acetaminophen ([place] 5/325) 1 tab PO Q4H PRN PRN Reason: Moderate Pain (4-6) Last Admin: 01/11/18 10:04 Dose: 1 tab Al Hydroxide/Mg Hydroxide (Maalox) 30 ml PO Q6H PRN PRN Reason: Heartburn or Indigestion Amoxicillin/Clavulanate Potassium (Augmentin) 875 mg PO Q12HR [facility] Last Admin: 01/12/18 08:24 Dose: 875 mg Dextrose/Water (Dextrose 50%) 25 gm SLOW IVP PRN PRN PRN Reason: Hypoglycemia Enoxaparin Sodium (Lovenox) 40 mg SC 0900 [facility] Last Admin: 01/12/18 08:24 Dose: 40 mg Famotidine (Pepcid) 20 mg PO BID [facility] Last Admin: 01/12/18 08:25 Dose: 20 mg Glipizide (Glucotrol) 5 mg PO BID-[facility] Last Admin: 01/12/18 08:25 Dose: 5 mg Glucagon (Glucagon) 1 mg IM PRN PRN PRN Reason: Hypoglycemia Guaifenesin/Dextromethorphan (Robitussin Dm) 15 ml PO Q4H PRN PRN Reason: Cough Dextrose/Water (D5w) 1,000 mls @ 0 mls/hr IV .Q0M PRN; As Directed PRN Reason: Hypoglycemia Insulin Human Lispro (Humalog) 0 units SC .MODERATE SLIDING SC PRN PRN Reason: Moderate Correctional Scale Last Admin: 01/11/18 13:00 Dose: 6 unit Insulin Human Lispro (Humalog) 0 units SC .BEDTIME SLIDING SC PRN PRN Reason: Bedtime Correctional Scale Last Admin: 01/08/18 20:13 Dose: 3 unit Lisinopril (Zestril) 10 mg PO DAILY [facility] Last Admin: 01/12/18 08:25 Dose: 10 mg Metformin HCl (Glucophage) 1,000 mg PO BID-[facility] Last Admin: 01/12/18 08:24 Dose: 1,000 mg Metoprolol Tartrate (Lopressor) 25 mg PO BID [facility] Last Admin: 01/12/18 08:25 Dose: 25 mg
--- NOTE | 2018-01-12 15:19 | PDOC.PN ---
- Subjective Encounter Start Date: 01/12/18 Encounter Start Time: 11:00 PAtient is seen day, Alert and oriented. pain well controlled. No other concers noted. - Objective Resuscitation Status: Resuscitation Status FULL:Full Resuscitation MAR Reviewed: Yes Vital Signs & Weight: Vital Signs (12 hours) Temp Pulse Resp BP BP Pulse Ox 01/12/18 08:25 148/72 H 01/12/18 08:00 98.2 F 69 22 H 01/12/18 07:40 98.2 F 69 22 H 133/71 98 Weight Admit Weight 169 lb 12.095 oz Weight 169 lb 12.095 oz I&O: 01/11/18 01/12/18 01/13/18 06:59 06:59 06:59 Intake Total 240 1200 Output Total 500 Balance 240 700 Result Diagrams: 01/08/18 04:48 01/08/18 04:48 Additional Labs: Accuchecks 01/12/18 01/12/18 01/11/18 11:41 05:09 20:28 POC Glucose 130 H 140 H 178 H 01/11/18 16:58 POC Glucose 90 Radiology Reviewed by me: Yes Dx/Plan (1) Diabetic foot ulcer Code(s): E11.621 - TYPE 2 DIABETES MELLITUS WITH FOOT ULCER; L97.509 - NON- PRESSURE CHRONIC ULCER OTH PRT UNSP FOOT W UNSP SEVERITY Status: Acute Qualifiers: Diabetic foot ulcer location: toe Diabetes mellitus type: type 2 Laterality: right Comment: s/p Amputation of the great toe, POD 2, stbale , plan is to monitor huim today, Surgeon will examin the wound tomorrow at dressing if staBLE, WILL CHANGE TO pO aBX. AND dISCHARGE HOME TOMORROW. (2) DM type 2 (diabetes mellitus, type 2) Status: Chronic Qualifiers: Diabetes mellitus buttermaker continuous churn insulin use: without buttermaker continuous churn use Diabetes mellitus complication status: with hyperglycemia Qualified Code(s): E11.65 - Type 2 diabetes mellitus with hyperglycemia Comment: well controlled, Continue to Monitor, Mild Elevation in BG will change to moderate sliding scale. (3) Dyslipidemia Code(s): E78.5 - HYPERLIPIDEMIA, UNSPECIFIED Status: Chronic Comment: contoinue Statin, (4) HTN (hypertension) Code(s): I10 - ESSENTIAL (PRIMARY) HYPERTENSION Status: Chronic Qualifiers: Hypertension type: essential hypertension Qualified Code(s): I10 - Essential (primary) hypertension Comment: Stbale, Well controlled, Continue Home MEds/. - Plan cont current plan of care, continue antibiotics, PT/OT, social work professor, incentive spirometry, DVT proph w/lovenox * . - Discharge Day Encounter end time: 11:35 Review of Systems - Review of Systems Eyes: negative: Pain, Vision Change, Conjunctivae Inflammation, Eyelid Inflammation, Redness, Other ENT: negative: Ear Pain, Ear Discharge, Nose Pain, Nose Discharge, Nose Congestion, Mouth Pain, Mouth Swelling, Throat Pain, Throat Swelling, Other Respiratory: negative: Cough, Dry, Shortness of Breath, Hemoptysis, SOB with Excertion, Pleuritic Pain, Sputum, Wheezing Cardiovascular: negative: chest pain, palpitations, orthopnea, paroxysmal nocturnal dyspnea, edema, light headedness, other Gastrointestinal: negative: Nausea, Vomiting, Abdominal Pain, Diarrhea, Constipation, Melena, Hematochezia, Other Musculoskeletal: Foot Pain. negative: Neck Pain, Shoulder Pain, Arm Pain, Back Pain, Hand Pain, Leg Pain, Other - Medications/Allergies Allergies/Adverse Reactions: Allergies Allergy/AdvReac Type Severity Reaction Status Date / Time No Known Allergies Allergy Unverified 01/06/18 20:09 Medications: Current Medications Acetaminophen (Tylenol) 650 mg PO Q4H PRN PRN Reason: Headache/Fever or Pain Last Admin: 01/08/18 20:09 Dose: 650 mg Hydrocodone Bitart/Acetaminophen ([place]le[place] 5/325) 1 tab PO Q4H PRN PRN Reason: Moderate Pain (4-6) Last Admin: 01/11/18 10:04 Dose: 1 tab Al Hydroxide/Mg Hydroxide (Maalox) 30 ml PO Q6H PRN PRN Reason: Heartburn or Indigestion Amoxicillin/Clavulanate Potassium (Augmentin) 875 mg PO Q12HR [facility] Last Admin: 01/12/18 08:24 Dose: 875 mg Dextrose/Water (Dextrose 50%) 25 gm SLOW IVP PRN PRN PRN Reason: Hypoglycemia Enoxaparin Sodium (Lovenox) 40 mg SC 0900 [facility] Last Admin: 01/12/18 08:24 Dose: 40 mg Famotidine (Pepcid) 20 mg PO BID [facility] Last Admin: 01/12/18 08:25 Dose: 20 mg Glipizide (Glucotrol) 5 mg PO BID[facility] Last Admin: 01/12/18 08:25 Dose: 5 mg Glucagon (Glucagon) 1 mg IM PRN PRN PRN Reason: Hypoglycemia Guaifenesin/Dextromethorphan (Robitussin Dm) 15 ml PO Q4H PRN PRN Reason: Cough Dextrose/Water (D5w) 1,000 mls @ 0 mls/hr IV .Q0M PRN; As Directed PRN Reason: Hypoglycemia Insulin Human Lispro (Humalog) 0 units SC .MODERATE SLIDING SC PRN PRN Reason: Moderate Correctional Scale Last Admin: 01/11/18 13:00 Dose: 6 unit Insulin Human Lispro (Humalog) 0 units SC .BEDTIME SLIDING SC PRN PRN Reason: Bedtime Correctional Scale Last Admin: 01/08/18 20:13 Dose: 3 unit Lisinopril (Zestril) 10 mg PO DAILY [facility] Last Admin: 01/12/18 08:25 Dose: 10 mg Metformin HCl (Glucophage) 1,000 mg PO BID-[facility] Last Admin: 01/12/18 08:24 Dose: 1,000 mg Metoprolol Tartrate (Lopressor) 25 mg PO BID [facility] Last Admin: 01/12/18 08:25 Dose: 25 mg
[2018-01-12 20:43] VITALS: TEMP 97.9
--- NOTE | 2018-01-12 20:49 | PRG ---
DATE OF SERVICE: 01/12/2018 SUBJECTIVE: Mr. Pedro has no new complaints. Notes no discomfort at his toe amputation site. Wo und VAC is still in place. OBJECTIVE: VITAL SIGNS: Afebrile. Vital signs within normal limits. LABORATORY DATA: He has no new labs except for his blood sugars. He has been changed per sound to A ugmentin for treatment of his foot infection, which is appropriate. ASSESSMENT AND PLAN: Tomorrow morning, I will ask the Wound Care Team to remove his wound VAC and te ach the patient and the family how to do a wet-to-dry dressing. He should remain nonweightbearing on the foot until it is appropriately healed. I would like to see him back in my office in 1 week. I would recommend discharge home tomorrow on oral antibiotics with daily wet-to-dry dressing changes an d follow up with me in 1 week.
[2018-01-13] MEDS: metFORMIN 500 MG TAB PO SCH (08:02)
[2018-01-13] MEDS: Lisinopril 10 MG TAB PO SCH (08:03)
[2018-01-13] MEDS: Amoxicillin/Potassium Clav 875 MG TAB PO SCH (08:03)
[2018-01-13] MEDS: glipiZIDE 5 MG TAB PO SCH (08:03)
[2018-01-13] MEDS: Metoprolol Tartrate 25 MG TAB PO SCH (08:03)
[2018-01-13] MEDS: Famotidine 20 MG TAB PO SCH (08:04)
[2018-01-13] MEDS: Enoxaparin Sodium 40 MG/0.4 ML SYRINGE SC SCH (08:05)
[2018-01-13 08:06] VITALS: BP 155/72
--- NOTE | 2018-01-13 14:06 | DIS ---
DATE OF ADMISSION: 01/07/2018 DATE OF DISCHARGE: 01/13/2018 ADMITTING DIAGNOSIS: Right foot diabetic ulcer over the first great toe and metatarsal head. DISCHARGE DIAGNOSIS: Right foot diabetic ulcer with osteomyelitis of the first great toe, status pos t amputation. SECONDARY DIAGNOSES: 1. Type 2 diabetes mellitus. 2. Hypertension. 3. Hyperlipidemia. CONSULTATIONS: Consultants involved in the care of Dr. Suresh from General Surgery. PROCEDURES DONE DURING THIS ADMISSION: Amputation of the right great toe followed by wound VAC place ment. HISTORY OF PRESENT ILLNESS AND HOSPITAL COURSE: In brief, this is a 57-year-old male with a right metatarsal head of the first toe infection starting with an ulcer 5 months ago, which slowly p rogressed to the point that the patient has severe infection in the foot. The patient tried a steroi d cream with gentamicin on it and has been progressively getting worse. So, he came back to the ER a nd had an x-ray of the foot, which had signs of osteomyelitis and the patient was started on Zosyn an d vancomycin. Cultures of the open ulcers were obtained. The patient was closely monitored during this admission and has been treated with IV antibiotics. Fo llowing amputation of the foot, the patient had a good recovery and was placed on wound VAC for 2 day s and the wound was healing well. A wound VAC was removed. Advised to wet to dry in place. The [facility] was advised to follow up with Dr. Suresh in 1 week. PHYSICAL EXAMINATION: On date of discharge: VITAL SIGNS: Blood pressures are 155/72, heart rate 69, respiratory rate is 18, saturations 99%. GENERAL: The patient is moderately built, moderately nourished, does not appear to be in acute distr ess. CARDIOVASCULAR: S1, S2 normal. No murmurs, rubs or gallops. LUNGS: Bilateral air entry was equal. No wheezing, no crackles. ABDOMEN: Soft, nontender, no guarding, no rebound tenderness. Bowel sounds normal. MUSCULOSKELETAL: No calf tenderness. No pedal edema. No joint tenderness, no joint swelling. SKIN: No cyanosis, no erythema, no rash, no pallor. CENTRAL NERVOUS SYSTEM: Cranial nerve examination II-XII intact. DISCHARGE MEDICATIONS: 1. Glimepiride 1 tablet p.o. b.i.d. 2. Metformin 1 tablet p.o. b.i.d. NEW MEDICATIONS: 1. Augmentin 875 mg p.o. for 10 more days. 2. Lisinopril 10 mg p.o. daily. 3. Metoprolol tartrate 25 mg p.o. b.i.d. DISCHARGE INSTRUCTIONS: The patient is advised to follow up with Dr. Suresh in 1 week and advised t o continue with the dry dressings as suggested and recommended by Dr. Suresh. The patient will foll ow up with the primary care physician in 1-2 weeks and advised to continue with a diabetic diet. Wound care instructions have been given through wound nurse. I spent 35 minutes with this patient on the day of discharge.
--- NOTE | 2018-01-13 19:31 | OP ---
DATE OF PROCEDURE: 01/10/2018 PREOPERATIVE DIAGNOSIS: Osteomyelitis of right great toe and right first metatarsal head. POSTOPERATIVE DIAGNOSIS: Osteomyelitis of right great toe and right first metatarsal head. OPERATION PERFORMED: Ray amputation of right first toe. SURGEON: Kwasi Suresh M.D. ANESTHESIA: General endotracheal. INDICATIONS: Patient is a 57-year-old diabetic male. He has had a long-term ulcer on the p lantar aspect of his right foot overlying the first metatarsal head. He has more recently developed an ulcer involving the right great toe. Initial attempts at conservative management of these wounds have been unsuccessful and he clearly has evidence of osteomyelitis of these two areas. I have there fore recommended proceeding with a ray amputation of this toe. Unfortunately, because of the locatio n of the ulcer, resection will have to be carried further proximally on the plantar surface . OPERATIVE PROCEDURE IN DETAIL: Informed consent was obtained. The patient was taken to the operatin g room where general anesthesia obtained with the patient in supine position. Right leg and foot wer e prepped with ChloraPrep and draped in sterile fashion. Local anesthetic was infiltrated proximally using 0.25% Marcaine with epinephrine. An incision was carried around the base of the right great t oe and around the plantar aspect to include the penetrating ulcer. Dissection was carried through sk in and subcutaneous tissue, initially down to the MTP joint and the toe was disarticulated at this le shellie and passed off the field. I then resected the head of the first metatarsal bone using a combinat ion of sharp transection with the rib mira as well as debridement with the rongeurs. The bone diss ection was carried back to a level which there was a likely possibility the soft tissue healing over the bone end could occur. The metatarsal head was healthy viable bone. Hemostasis was obtained with electrocautery. The wound was packed with dry gauze dressing followed by a dry gauze external dress ing and Atul wrap. There were no complications. Blood loss was negligible. The patient tolerated th e procedure well and was taken to recovery room in stable condition.
== END 2018-01-13 15:18 | disposition home or self-care (01) | DRG 617 ==
LOC: ERS 15:05 → T4-B 17:47
PROVIDERS: ADMIT Internal Medicine; ATTEND Internal Medicine
PROC: 0Y6P0Z0 Detachment at Right 1st Toe, Complete, Open Approach (ICD-10-PCS; principal; 2018-01-10)
DX: E11.621 Type 2 diabetes mellitus with foot ulcer (principal); M86.9 Osteomyelitis, unspecified; L97.519 Non-pressure chronic ulcer of other part of right foot with unspecified severity; I10 Essential (primary) hypertension; E78.5 Hyperlipidemia, unspecified; Z79.84 Long term (current) use of oral hypoglycemic drugs; E11.65 Type 2 diabetes mellitus with hyperglycemia; B95.5 Unspecified streptococcus as the cause of diseases classified elsewhere
CPT/HCPCS: 36415; 36416; 80048; 80053; 80202; 83036; 83605; 85025; 85652; 86140; 87040; 87070; 87077; 87186; 87205; 88305; 88311; 96365; 96368; G8978-GP-CL; G8979-GP-CJ; J1650; J2001; J2543; J2704; J3010; J3370; J3490; J7050